=== PATIENT | female | born 1980 ===

== ENCOUNTER 2016-12-15 18:33 | Emergency (ER) | payer BC ==
[2016-12-15] MEDS ORDERED: Acetaminophen 500 MG Tab PO ONE (18:37)
[2016-12-15] MEDS ORDERED: Lactated Ringers 1,000 ML IV SCH (19:00)
[2016-12-15 19:11] LABS: CHLORIDE,CL 104 mEq/L (98-106); SODIUM,NA 139 mEq/L (136-145)
[2016-12-15] MEDS ORDERED: Iopamidol 612 MG/ML 100 ML Bottle IVPUSH ONE (19:33)
[2016-12-15 20:28] VITALS: BP 147/76
[2016-12-15] MEDS ORDERED: cefTRIAXone 1 GM Vial IVPUSH ONE ×2 (20:38→20:42)
[2016-12-15] MEDS ORDERED: Levofloxacin 500 MG Tab PO ONE (20:41)
--- NOTE | 2016-12-15 21:21 | EDM.PDOC ---
ED HPI GENERAL MEDICAL PROBLEM - General Chief Complaint: Genitourinary Problem Stated Complaint: back pain, fever Time Seen by Provider: 12/15/16 18:33 Source of Information: Reports: Patient - History of Present Illness INITIAL COMMENTS - FREE TEXT/NARRATIVE: Has been havng back pain for 2 weeks, now feels feverish and has chills Onset: Gradual Duration: Week(s): Location: Reports: Back Quality: Reports: Dull Severity: Moderate Improves with: Reports: None Worsens with: Reports: None Associated Symptoms: Reports: Nausea/Vomiting Right Abdomen Pain Score (Numeric/FACES): 5 - Related Data Allergies Allergy/AdvReac Type Severity Reaction Status Date / Time No Known Allergies Allergy Verified 02/27/16 18:16 Home Meds: Home Meds Citalopram [Citalopram HBr] 1 tab PO DAILY 02/12/14 [History] Gabapentin [Gabapentin] 900 mg PO TID 12/08/15 [History] LORazepam [LORazepam] 0.5 - 1 mg PO Q6H PRN 12/08/15 [History] Nabumetone [Nabumetone] 500 mg PO BID 12/08/15 [History] Norethindrone-E.estradiol-Iron [Junel Fe 1.5 MG-30 MCG] 1 tab PO DAILY 12/08/15 [History] Propranolol HCl [Propranolol HCl ER] 80 mg PO DAILY 12/08/15 [History] Naproxen 500 mg PO BID 12/15/16 [History] Past Medical History [employer] History: Reports: Musculoskeletal History: Reports: Back Pain, Chronic Neurological History: Reports: Migraines Psychiatric History: Reports: Depression - Past Surgical History HEENT Surgical History: Reports: Oral Surgery Musculoskeletal Surgical History: Reports: Other (See Below) Social & Family History - Tobacco Use Smoking Status *Q: Current Every Day Smoker Years of Tobacco use: 20 Packs/Tins Daily: 1 Used Tobacco, but Quit: No Second Hand Smoke Exposure: Yes - Caffeine Use Caffeine Use: Reports: Coffee, Soda - Alcohol Use Days Per Week of Alcohol Use: 0 - Recreational Drug Use Recreational Drug Use: No ED ROS GENERAL - Review of Systems Review Of Systems: See Below Constitutional: Reports: Fever, Chills HEENT: Reports: No Symptoms Respiratory: Reports: No Symptoms Cardiovascular: Reports: No Symptoms Endocrine: Reports: No Symptoms GI/Abdominal: Reports: No Symptoms : Reports: No Symptoms Musculoskeletal: Reports: No Symptoms Skin: Reports: No Symptoms Neurological: Reports: No Symptoms Hematologic/Lymphatic: Reports: No Symptoms Immunologic: Reports: No Symptoms ED EXAM, RENAL/ - Physical Exam Exam: See Below Exam Limited By: No Limitations Ears: Normal External Exam Nose: Normal Inspection Throat/Mouth: Normal Inspection Head: Atraumatic Neck: Normal Inspection Respiratory/Chest: No Respiratory Distress Cardiovascular: Normal Peripheral Pulses GI/Abdominal: Soft, Tender Back Exam: Normal Inspection, Full Range of Motion, Paraspinal Tenderness Extremities: Normal Inspection Neurological: Alert, Oriented Psychiatric: Normal Affect Skin Exam: Warm, Dry Course - Vital Signs Last Recorded V/S: Last Vital Signs Temp 102.0 F H 12/15/16 20:24 Pulse 107 H 12/15/16 18:33 Resp 16 12/15/16 18:33 BP 147/76 H 12/15/16 20:24 Pulse Ox 98 12/15/16 18:33 - Orders/Labs/Meds Orders: Active Orders 24 hr Category Date Time Status Abdomen Pelvis w Cont [CT] Stat Exams 12/15/16 20:02 Taken Lactated Ringers [Ringers, Lactated] 1,000 ml Med 12/15/16 19:00 Active IV ASDIRECTED Medication Orders Lactated Ringer's (Ringers, Lactated) 1,000 mls @ 999 mls/hr IV ASDIRECTED PEPE Last Admin: 12/15/16 19:00 Dose: 999 mls/hr Labs: Laboratory Tests 12/15/16 12/15/16 12/15/16 Range/Units 18:47 18:47 18:47 WBC 10.6 H (5.0-10.0) 10^3/uL RBC 3.99 L (4.00-5.50) 10^6/uL Hgb 12.6 (12.0-16.0) g/dL Hct 38.2 (37.0-47.0) % MCV 95.7 H (82.0-94.0) fL MCH 31.6 (27.0-32.0) pg MCHC 33.0 (33.0-38.0) g/dL RDW Coeff of Ramon 12.4 (11.0-15.0) % Plt Count 172 (150-400) 10^3/uL Neut % (Auto) 88.2 H (35-85) % Lymph % (Auto) 7.0 L (10-55) % Hunt % (Auto) 3.8 (0-16) % Eos % (Auto) 0.7 (0-5) % Baso % (Auto) 0.3 (0-3) % Neut # (Auto) 9.37 H (1.80-7.00) 10^3/uL Lymph # (Auto) 0.74 L (1.00-4.80) 10^3/uL Hunt # (Auto) 0.40 (0.00-0.80) 10^3/uL Eos # (Auto) 0.07 (0.00-0.45) 10^3/uL Baso # (Auto) 0.03 10^3/uL Sodium 139 (136-145) mEq/L Potassium 3.8 (3.5-5.0) mEq/L Chloride 104 (98-106) mEq/L Carbon Dioxide 24 (21-32) mmol/L BUN 9 (7-18) mg/dL Creatinine 1.0 D (0.6-1.0) mg/dL Est Cr Clr Drug Dosing TNP Estimated GFR (MDRD) > 60 (>=60) mL/min Glucose 135 H (75-99) mg/dL Calcium 8.4 (8.4-10.1) mg/dL Total Bilirubin 0.3 (0.0-1.0) mg/dL AST 11 L (15-37) U/L ALT 16 (12-78) U/L Alkaline Phosphatase 92 (46-116) U/L Total Protein 7.1 (6.4-8.2) g/dL Albumin 3.2 L (3.4-5.0) g/dL Urine Color Yellow (YELLOW) Urine Appearance Clear (CLEAR) Urine pH 8.5 H (4.5-8.0) Ur Specific Conklin 1.020 (1.003-1.020) Urine Protein 30 H (NEGATIVE) mg/dL Urine Glucose (UA) Negative (NEGATIVE) mg/dL Urine Ketones Negative (NEGATIVE) mg/dL Urine Occult Blood Small H (NEGATIVE) Urine Nitrite Negative (NEGATIVE) Urine Bilirubin Negative (NEGATIVE) Urine Urobilinogen 0.2 (0.2-1.0) EU/dL Ur Leukocyte Esterase Negative (NEGATIVE) Urine RBC Cancelled Urine Red Cell Clumps Cancelled Urine WBC Cancelled Urine WBC Clumps Cancelled Ur Epithelial Cells Cancelled Ur Squamous Epith Cells Cancelled Ur Renal Epithelial Cell Cancelled Angels Biurate Crystals Cancelled Calcium Oxalate Crystal Cancelled Uric Acid Crystals Cancelled Triple Phos Crystals Cancelled Other Crystals Cancelled Amorphous Sediment Cancelled Urine Bacteria Cancelled Hyaline Casts Cancelled Granular Casts Cancelled RBC Casts Cancelled WBC Casts Cancelled Urine Mucus Cancelled Urine Other Cancelled Urine Trichomonas Cancelled Urine Yeast Cancelled Urine Sperm Cancelled Urinalysis Comment Cancelled Urine HCG, Qual 12/15/16 Range/Units 18:47 WBC (5.0-10.0) 10^3/uL RBC (4.00-5.50) 10^6/uL Hgb (12.0-16.0) g/dL Hct (37.0-47.0) % MCV (82.0-94.0) fL MCH (27.0-32.0) pg MCHC (33.0-38.0) g/dL RDW Coeff of Ramon (11.0-15.0) % Plt Count (150-400) 10^3/uL Neut % (Auto) (35-85) % Lymph % (Auto) (10-55) % Hunt % (Auto) (0-16) % Eos % (Auto) (0-5) % Baso % (Auto) (0-3) % Neut # (Auto) (1.80-7.00) 10^3/uL Lymph # (Auto) (1.00-4.80) 10^3/uL Hunt # (Auto) (0.00-0.80) 10^3/uL Eos # (Auto) (0.00-0.45) 10^3/uL Baso # (Auto) 10^3/uL Sodium (136-145) mEq/L Potassium (3.5-5.0) mEq/L Chloride (98-106) mEq/L Carbon Dioxide (21-32) mmol/L BUN (7-18) mg/dL Creatinine (0.6-1.0) mg/dL Est Cr Clr Drug Dosing Estimated GFR (MDRD) (>=60) mL/min Glucose (75-99) mg/dL Calcium (8.4-10.1) mg/dL Total Bilirubin (0.0-1.0) mg/dL AST (15-37) U/L ALT (12-78) U/L Alkaline Phosphatase (46-116) U/L Total Protein (6.4-8.2) g/dL Albumin (3.4-5.0) g/dL Urine Color (YELLOW) Urine Appearance (CLEAR) Urine pH (4.5-8.0) Ur Specific [place]lin (1.003-1.020) Urine Protein (NEGATIVE) mg/dL Urine Glucose (UA) (NEGATIVE) mg/dL Urine Ketones (NEGATIVE) mg/dL Urine Occult Blood (NEGATIVE) Urine Nitrite (NEGATIVE) Urine Bilirubin (NEGATIVE) Urine Urobilinogen (0.2-1.0) EU/dL Ur Leukocyte Esterase (NEGATIVE) Urine RBC Urine Red Cell Clumps Urine WBC Urine WBC Clumps Ur Epithelial Cells Ur Squamous Epith Cells Ur Renal Epithelial Cell Drew Biurate Crystals Calcium Oxalate Crystal Uric Acid Crystals Triple Phos Crystals Other Crystals Amorphous Sediment Urine Bacteria Hyaline Casts Granular Casts RBC Casts WBC Casts Urine Mucus Urine Other Urine Trichomonas Urine Yeast Urine Sperm Urinalysis Comment Urine HCG, Qual Negative Meds: Medications Generic Name Dose Route Start Last Admin Trade Name Freq PRN Reason Stop Dose Admin Lactated Ringer's 1,000 mls @ 999 mls/hr 12/15/16 19:00 12/15/16 19:00 Ringers, Lactated IV 999 mls/hr ASDIRECTED PEPE Administration Discontinued Medications Generic Name Dose Route Start Last Admin Trade Name Freq PRN Reason Stop Dose Admin Acetaminophen 1,000 mg 12/15/16 18:37 12/15/16 18:55 Tylenol Extra Strength PO 12/15/16 18:38 1,000 mg ONETIME ONE Administration Ceftriaxone Sodium 1 gm 12/15/16 20:42 12/15/16 20:50 Rocephin IVPUSH 12/15/16 20:43 1 gm ONETIME ONE Administration Iopamidol 100 ml 12/15/16 19:33 12/15/16 20:04 Isovue-300 (61%) IVPUSH 12/15/16 19:34 100 ml ONETIME ONE Administration Levofloxacin 750 mg 12/15/16 20:41 12/15/16 20:53 Levaquin PO 12/15/16 20:42 750 mg ONETIME ONE Administration Departure - Departure Time of Disposition: 21:18 Disposition: Home, Self-Care 01 Condition: Good Clinical Impression: UTI, Urinary tract infectious disease - Discharge Information Referrals: Vincenzo Leung PA-C [Primary Care Provider] - Forms: ED Department Discharge Additional Instructions: PUSH FLUIDS LEVAQUIN PRESCRIBED ALTERNATE TYLENOL AND IBUPROFEN FOR PAIN AND FEVER FOLLOW UP NEXT WEEK WITH PRIMARY CARE PROVIDER IF NOT SIGNIFICANTLY BETTER BY SUNDAY RETURN TO ER IF ANY WORSENING OF CONDITION OR NEW SYMPTOMS ARISE. - My Orders Last 24 Hours: My Active Orders 12/15/16 19:00 Lactated Ringers [Ringers, Lactated] 1,000 ml IV ASDIRECTED 12/15/16 20:02 Abdomen Pelvis w Cont [CT] Stat - Assessment/Plan Last 24 Hours: My Active Orders 12/15/16 19:00 Lactated Ringers [Ringers, Lactated] 1,000 ml IV ASDIRECTED 12/15/16 20:02 Abdomen Pelvis w Cont [CT] Stat
== END 2016-12-15 21:10 | disposition home or self-care (01) ==
LOC: CC.ED 18:33
DX: N39.0 Urinary tract infection, site not specified (principal); F17.210 Nicotine dependence, cigarettes, uncomplicated; Z79.899 Other long term (current) drug therapy
CPT/HCPCS: 36415; 74177; 80053; 81003; 81025; 85025; 96374; 99284; A9270; J0696; J7120; Q9967